=== PATIENT | female | born 1990 | race Caucasian/White ===

== ENCOUNTER 2017-10-03 10:59 | Emergency (ER) | payer SELFPAY ==
[~2017-10-03] VITALS: Ht 171.4 cm; Wt 140.0 kg
[2017-10-03 12:35] VITALS: BP 125/80
== END 2017-10-03 13:29 | disposition left against medical advice (07) ==
LOC: ED 13:28
DX: R07.9 Chest pain, unspecified (principal); M79.601 Pain in right arm
CPT/HCPCS: 93005; 99281

== ENCOUNTER 2017-11-14 12:29 | Emergency (ER) | payer MEDICAID, OTHER ==
[~2017-11-14] VITALS: Ht 172.7 cm; Wt 141.7 kg
[2017-11-14 12:53] VITALS: BP 168/91
== END 2017-11-14 15:01 | disposition home or self-care (01) ==
LOC: ED 14:40
DX: R05 Cough (principal); F17.200 Nicotine dependence, unspecified, uncomplicated; Z86.11 Personal history of tuberculosis
CPT/HCPCS: 71046; 99284